=== PATIENT | female | born 1985 | race Two or more races ===

== ENCOUNTER 2020-11-30 09:09 | Emergency (ER) | payer MEDICAID ==
[~2020-11-30] VITALS: Ht 160 cm; Wt 72.1 kg
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
[2020-11-30] MEDS ORDERED: NAPR-1009 PO (11:44)
[2020-11-30 12:30] VITALS: BP 127/84
--- NOTE | 2020-11-30 12:30 | NUR ---
Patient discharged to home in stable condition. Written and verbal after care instructions given. Patient verbalizes understanding of instruction. The patient left ER in stable condition.
== END 2020-11-30 12:31 | disposition home or self-care (01) ==
LOC: ER 09:13 → EDBD 09:13 → ER 12:31
DX: M25.512 Pain in left shoulder (principal); M54.2 Cervicalgia; Z79.899 Other long term (current) drug therapy; V49.49XA Driver injured in collision with other motor vehicles in traffic accident, initial encounter; Y93.89 Activity, other specified; Y92.488 Other paved roadways as the place of occurrence of the external cause; Y99.8 Other external cause status
CPT/HCPCS: 71045-TC; 72050-TC; 73030-TC